=== PATIENT | male | born 1960 | race Caucasian/White ===

== ENCOUNTER 2017-06-10 05:57 | Inpatient (IN) | payer OTHER ==
[2017-06-03 16:01] VITALS: BMI 41.1
[2017-06-10] MEDS ORDERED: THROMBIN (BOVINE) 5,000 UNIT VIAL TP ONE ×2 (06:44→10:05)
[2017-06-10] MEDS ORDERED: LIDOCAINE 1%/EPI 1:100000 (20 ML MULTI DOSE VIAL) ONE (06:44)
[2017-06-10] MEDS ORDERED: oxyCODONE HCL 10 MG SUSTAINED ACTING TABLET ONE (07:23)
[2017-06-10] MEDS ORDERED: oxyCODONE HCL 10 MG SUSTAINED ACTING TABLET PO ONE (07:36)
[2017-06-10] MEDS ORDERED: DEXAMETHASONE SOD PHOSPHATE/PF 10 MG/ML SDV ONE (07:37)
[2017-06-10] MEDS ORDERED: MIDAZOLAM HCL 2 MG/2 ML SINGLE DOSE VIAL ONE (07:37)
[2017-06-10] MEDS ORDERED: BUPIVACAINE HCL/PF 2.5 MG/ML - 30 ML VIAL IJ ONE (07:37)
--- NOTE | 2017-06-10 07:39 | HP ---
History & Physical Update - History History: No Change - Physical Physical: No Change - Assessment Assessment: No Change - Plan Plan: No Change
[2017-06-10] MEDS ORDERED: ePHEDrine SULFATE 50 MG/1 ML AMPULE ONE (09:17)
[2017-06-10] MEDS ORDERED: ceFAZolin SODIUM 1 GM VIAL ONE (09:25)
[2017-06-10] MEDS ORDERED: ONDANSETRON 4 MG/2 ML VIAL ONE (09:26)
[2017-06-10] MEDS ORDERED: DEXAMETHASONE SOD PHOSPHATE 4 MG/1 ML VIAL ONE (09:26)
[2017-06-10] MEDS ORDERED: LIDOCAINE 1%/EPI 1:100000 (50 ML MULTI DOSE VIAL) INF ONE (09:35)
[2017-06-10] MEDS ORDERED: GUM MASTIC/STORAX/MSAL/ALCOHOL 1 DRP DROPSBTL MC ONE (11:02)
[2017-06-10] MEDS ORDERED: oxyCODONE HCL 5 MG TABLET PO PRN (11:34)
[2017-06-10] MEDS ORDERED: CYCLOBENZAPRINE HCL 10 MG TABLET (FP) PO PRN (11:34)
[2017-06-10] MEDS ORDERED: ONDANSETRON 4 MG/2 ML VIAL IVPUSH PRN (11:34)
[2017-06-10] MEDS ORDERED: ALBUTEROL SO4 0.083% IH SOL 2.5 MG/3 ML VIAL.NEB. NEB PRN (11:42)
[2017-06-10] MEDS ORDERED: LACTATED RINGERS SOLUTION 1,000 ML IV SCH (11:45)
--- NOTE | 2017-06-10 11:51 | OP ---
Operative Note - Note: Operative Date: 06/10/17 Pre-Operative Diagnosis: lumbar spondylolisthesis Operation: posterior lumbar decompression, instrumentation, fusion, transforaminal lumbar interbody fusion of L5-S1 with allograft and neuromonitoring Surgeon: Juan Carlos Birmingham Stator Tester: Ashly Hou Anesthesiologist/AUTOMOTIVE MECHANICAL ENGINEER: Orquidea Marie Anesthesia: Spinal Estimated Blood Loss (mls): 30 Fluid Volume Replaced (mls): 1,000 Operative Report Dictated: Yes
--- NOTE | 2017-06-10 11:52 | SURG ---
Surgery [facility]iology Consultants Note Cardiology Consultants: Ashly Hou PA-C Date of Service: 06/10/17 Diagnosis: lumbar spondylolisthesis Procedure: posterior lumbar decompression, instrumentation, fusion, transforaminal lumbar interbody fusion of L5-S1 with allograft and neuromonitoring I was present for the entirety of the operative procedure. For further detail, please refer to operative report. Visit type - Case Type Case Type: Scheduled Admission - Emergency Emergency Visit: No - New patient This patient is new to me today: Yes Date on this admission: 06/10/17 - Critical Care Critical Care patient: No
[2017-06-10] MEDS: ACETAMINOPHEN 325 MG TABLET (FP) PO SCH ×3 (11:57→18:29)
--- NOTE | 2017-06-10 12:12 | OP ---
DATE OF OPERATION: 06/10/2017 PREOPERATIVE DIAGNOSES: 1. Degenerative disk disease L5-S1. 2. Spinal stenosis L5-S1. POSTOPERATIVE DIAGNOSES: 1. Degenerative disk disease L5-S1. 2. Spinal stenosis L5-S1. PROCEDURE PERFORMED: 1. Transforaminal lumbar interbody fusion L5-S1. 2. Placement of instrumentation. 3. Placement of prosthetic cage. SURGEON: Juan Carlos Birmingham MD MILK PASTEURIZER: SHANTEL Mayberry ESTIMATED BLOOD LOSS: 50 mL. IV FLUIDS: Per Anesthesia. ANESTHESIA: Spinal/TLIP. COMPLICATIONS: None. DISPOSITION: The patient was brought to the PACU in stable condition. INDICATIONS FOR SURGERY: The patient is a 57-year-old gentleman who has been suffering from pain from his back down his legs. X-rays and MRI were completed, which noted that he has spinal stenosis at L5-S1 secondary to degenerative disk disease. He previously had a laminectomy. He had gone through an exhaustive course of treatment for this, which included medications, physical therapy, injections. Unfortunately, his pain continued to persist despite all this. At this point, risks, benefits, and alternatives were discussed, and the patient consented to surgery. DESCRIPTION OF PROCEDURE: The patient was brought to the operating room by the Anesthesia staff. After appropriate patient identification was performed, spinal anesthetic was given. A TLIP block was given. The patient was able to position himself prone onto the OR bed with all areas of bony prominences well padded at this time. The C-arm was brought in. The L5-S1 levels were marked off. Then 10 mL of lidocaine with epinephrine was injected in his back at this time. His back was prepped and draped in a sterile manner. At this point, a time-out was completed. Incisions were made bilaterally over the L5-S1 levels. Dissection was carried down to the fascia. The fascia was split open at this time. Under C-arm guidance, trocars were advanced into both the L5 and S1 levels. Next, trocars were advanced. Through the trocars, a wire was inserted. Over the wires, tap was performed and screws inserted. On the left hand side, retractor blades were set up to expose the L5-S1 facet joint. The facet joint was removed with a bur. The disk was entered. Using a series of pituitaries, Kerrisons, and curettes, a diskectomy was completed. Endplates were decorticated at this time. Bone graft was laid down. A cage-filled bone graft was placed in. Then 2-0 pins were placed over the screws. A charlie was measured and placed in. The caps were placed on. Final tightening was performed. On the right hand side, a charlie was measured and placed in the capsule. Final tightening was performed. All instrumentation was removed at this time. AP and lateral x-ray confirmed the instrumentation to be in good position. The fascia was closed with a No. 1 Vicryl suture. The subcutaneous tissues were closed with 2-0 Vicryl suture. The skin was closed with 3-0 Monocryl suture. Dermabond was applied. Steri-Strips were applied. A sterile dressing was applied. The patient was placed supine on the OR bed and brought to the PACU in stable condition. Storm [id number]
[2017-06-10] MEDS: oxyCODONE HCL 5 MG TABLET PO PRN ×2 (13:22→21:02)
[2017-06-10] MEDS: KETOROLAC TROMETHAMINE 30 MG/1 ML VIAL IVPUSH PRN ×2 (14:57→21:03)
[2017-06-10] MEDS: predniSONE 5 MG TABLET (UD) PO SCH (21:03)
[2017-06-10] MEDS ORDERED: FLUTICASONE NS SCH (22:00)
[2017-06-10] MEDS ORDERED: BECLOMETHASONE DIPROPIONATE IH SCH (22:00)
[2017-06-10] MEDS ORDERED: [UNRECOGNIZED DRUG - OTHER] NS SCH (22:00)
[2017-06-10] MEDS ORDERED: AZELASTINE NS SCH (22:00)
[2017-06-11] MEDS: oxyCODONE HCL 5 MG TABLET PO PRN (04:41)
[2017-06-11 06:21] VITALS: BP 157/70; PULSE 57; TEMP 97.4
[2017-06-11] MEDS: ACETAMINOPHEN 325 MG TABLET (FP) PO SCH ×3 (06:25→11:50)
[2017-06-11 09:07] LABS: HEMATOCRIT 47.3 % (35.4-49); HEMOGLOBIN 16.3 GM/dl (11.7-16.9); MCH 31.2 pg (25.7-33.7); MCHC 34.5 g/dl (32.0-35.9); MEAN CELL VOLUME 90.4 fl (80-96); MEAN PLT VOLUME 8.9 fl (7.5-11.1); PLATELET COUNT 153 K/MM3 (134-434); RBC 5.23 M/mm3 (4.00-5.60); RDW 13.3 % (11.9-15.9); WHITE BLOOD COUNT 15.2 K/mm3 (4.0-10.8)
--- NOTE | 2017-06-11 09:07 | DS ---
Physical Exam: SUBJECTIVE: Patient seen and examined he states that he is feeling well. ABle to sit for lunger periord of time with numbness to his lower extremities. OBJECTIVE: Vital Signs Temperature 97.4 F L 06/11/17 06:00 Pulse Rate 57 L 06/11/17 06:00 Respiratory Rate 20 06/11/17 06:00 Blood Pressure 157/70 06/11/17 06:00 O2 Sat by Pulse Oximetry (%) 94 L 06/11/17 07:55 PHYSICAL EXAM GENERAL: The patient is awake, alert, and fully oriented, in no acute distress. LUNGS: Breath sounds equal, clear to auscultation bilaterally, no wheezes, no crackles, no accessory muscle use. HEART: Regular rate and rhythm, S1, S2 without murmur, rub or gallop. EXTREMITIES: 2+ pulses, warm, well-perfused, no edema. NEUROLOGICAL: 5/5 dorsi/plantar flexion b/l. Normal speech, gait steady. PSYCH: Normal mood, normal affect. LABS HOSPITAL COURSE: Date of Admission:06/10/17 Date of Discharge: 06/11/17 The patient was admitted to the Med-Surg Unit after an elective repair of their lumbar spondylolisthesis. Now, s/p L5-S1 posterior fusion. The day of surgery, the patient ambulated the hallways with assistance. Narcotic and non-narcotic pain management control was achieved with an oral and IV approach. An xray was obtained and confirmed hardware placement at L5-S1, no fractures or dislocations. Chantel-operative IV ABX were administered. DVT prophylaxis was achieved with SCDs and early ambulation. The patient ambulated with Physical Therapy and no services were recommended upon discharge. Narcotic scripts and or muscle relaxants were checked with [facility] PHOTO ENGRAVER prior to escibe. The discharge instructions and an oral pain management plan were reviewed with the patient. All questions answered. Above plan discussed with Dr. Brimingham and agreed. Minutes to complete discharge: 30 <Ashly Hou - Last Filed: 06/16/17 07:18> Physical Exam: SUBJECTIVE: Patient seen and examined OBJECTIVE: Vital Signs Temperature 97.4 F L 06/11/17 06:00 Pulse Rate 57 L 06/11/17 06:00 Respiratory Rate 20 06/11/17 06:00 Blood Pressure 157/70 06/11/17 06:00 O2 Sat by Pulse Oximetry (%) 94 L 06/11/17 07:55 PHYSICAL EXAM GENERAL: The patient is awake, alert, and fully oriented, in no acute distress. HEAD: Normal with no signs of trauma. EYES: PERRL, extraocular movements intact, sclera anicteric, conjunctiva clear. ENT: Ears normal, nares patent, oropharynx clear without exudates, moist mucous membranes. NECK: Trachea midline, full range of motion, supple. LUNGS: Breath sounds equal, clear to auscultation bilaterally, no wheezes, no crackles, no accessory muscle use. HEART: Regular rate and rhythm, S1, S2 without murmur, rub or gallop. ABDOMEN: Soft, nontender, nondistended, normoactive bowel sounds, no guarding, no rebound, no hepatosplenomegaly, no masses. EXTREMITIES: 2+ pulses, warm, well-perfused, no edema. NEUROLOGICAL: Cranial nerves II through XII grossly intact. Normal speech, gait not observed. PSYCH: Normal mood, normal affect. SKIN: Warm, dry, normal turgor, no rashes or lesions noted. LABS CBC,CMP WBC 15.2 K/mm3 (4.0-10.8) H 06/11/17 07:30 RBC 5.23 M/mm3 (4.00-5.60) 06/11/17 07:30 Hgb 16.3 GM/dl (11.7-16.9) 06/11/17 07:30 Hct 47.3 % (35.4-49) 06/11/17 07:30 MCV 90.4 fl (80-96) 06/11/17 07:30 MCH 31.2 pg (25.7-33.7) 06/11/17 07:30 MCHC 34.5 g/dl (32.0-35.9) 06/11/17 07:30 RDW 13.3 % (11.9-15.9) 06/11/17 07:30 Plt Count 153 K/MM3 (134-434) 06/11/17 07:30 MPV 8.9 fl (7.5-11.1) 06/11/17 07:30 Sodium 138 mmol/L (136-145) 06/11/17 07:40 Potassium 4.0 mmol/L (3.5-5.1) 06/11/17 07:40 Chloride 102 mmol/L (98-107) 06/11/17 07:40 Carbon Dioxide 24 mmol/L (22-28) 06/11/17 07:40 Anion Gap 12 (8-16) 06/11/17 07:40 BUN 23 mg/dl (7-18) H 06/11/17 07:40 Creatinine 1.1 mg/dl (0.6-1.3) 06/11/17 07:40 Random Glucose 202 mg/dl (74-106) H 06/11/17 07:40 Calcium 9.5 mg/dl (8.4-10.2) 06/11/17 07:40 HOSPITAL COURSE: Date of Admission:06/10/17 Date of Discharge: 06/16/17 The patient was admitted to the Med-Surg Unit after an elective repair of their L5-S1 spinal stenosis. The day of surgery, the patient ambulated the hallways with assistance. Narcotic and non-narcotic pain management control was achieved with an oral and IV approach. POD #1, the surgical drain was removed fully intact and without incident. An xray was obtained and confirmed hardware placement at L5-S1, no fractures or dislocations. Chantel-operative IV ABX were administered. DVT prophylaxis was achieved with SCDs and early ambulation. The patient ambulated with Physical Therapy and no services were recommended upon discharge. Narcotic scripts and or muscle relaxants were checked with [place] PHOTO ENGRAVER prior to escibe. The discharge instructions and an oral pain management plan were reviewed with the patient. All questions answered. Above plan discussed with Dr. Birmingham and agreed. Patient seen and examined Agree with above D/C Planning <Juan Carlos Birmingham - Last Filed: 06/16/17 08:39> Visit type - Case Type Case Type: Scheduled Admission - Emergency Emergency Visit: No - New patient This patient is new to me today: Yes Date on this admission: 06/16/17 <Ashly Hou - Last Filed: 06/16/17 07:18>
--- NOTE | 2017-06-11 09:33 | PN ---
Progress Note (short form) - Note Progress Note: Anesthesiology Post-op POD#1 s/p Lumbar fusion. Pt. sitting up, feeling very well. Pain well controlled. No apparent anesthesia-related issues. VSS.
[2017-06-11 09:34] LABS: ANION GAP 12 (8-16); BLOOD UREA NITROGEN 23 mg/dl (7-18); CALCIUM 9.5 mg/dl (8.4-10.2); CHLORIDE 102 mmol/L (98-107); CO2 24 mmol/L (22-28); CREATININE 1.1 mg/dl (0.6-1.3); GLUCOSE,RANDOM 202 mg/dl (74-106); SODIUM 138 mmol/L (136-145)
[2017-06-11] MEDS: predniSONE 5 MG TABLET (UD) PO SCH (09:37)
[2017-06-11] MEDS ORDERED: ATORVASTATIN CA 20 MG TABLET (FP) PO SCH (10:00)
[2017-06-11] MEDS ORDERED: MONTELUKAST SODIUM PO SCH (10:00)
[2017-06-11] MEDS ORDERED: HYDROCHLOROTHIAZIDE 25 MG TABLET (FP) PO SCH (10:00)
== END 2017-06-11 12:02 | disposition home or self-care (01) | DRG 460 ==
LOC: FM/S 05:57
PROVIDERS: ADMIT Orthopaedic Surgery Orthopaedic Surgery of the Spine; ATTEND Orthopaedic Surgery Orthopaedic Surgery of the Spine
PROC: 0SG30K1 Fusion of Lumbosacral Joint with Nonautologous Tissue Substitute, Posterior Approach, Posterior Column, Open Approach (ICD-10-PCS; principal; 2017-06-10 09:41)
DX: M48.07 Spinal stenosis, lumbosacral region (principal); Z68.41 Body mass index [BMI] 40.0-44.9, adult; M43.16 Spondylolisthesis, lumbar region; E78.5 Hyperlipidemia, unspecified; E66.9 Obesity, unspecified
CPT/HCPCS: 36415; 72100-TC; 80048; 85027; 94010; 94760; 97116-GP; 97161-GP